=== PATIENT | male | born 2000 | race Caucasian/White ===

== ENCOUNTER 2018-06-12 19:57 | Emergency (ER) | payer SELFPAY ==
[~2018-06-12] VITALS: Ht 170.2 cm; Wt 122.5 kg
[2018-06-12 20:00] VITALS: BP 128/68
--- NOTE | 2018-06-12 20:08 | ED.ADGEN ---
Adult General Chief Complaint Chief Complaint ".. I woke up with this thing on my finger... ".." My finger is infected..." HPI HPI Patient is a 18 year old male who presents with above hx and complaints paronychia of third finger right hand. Patient does chews his finger nails. Patient had previously attempted drainage of small abscess at the edge of fingernail. Patient is a known diabetic. Patient does not remember his last tetanus. No history of travel. No history of ill contacts. She neurovascular intact. Review of Systems Review of Systems Constitutional: Denies fever or chills [] Eyes: Denies change in visual acuity, redness, or eye pain [] HENT: Denies nasal congestion or sore throat [] Respiratory: Denies cough or shortness of breath [] Cardiovascular: No additional information not addressed in HPI [] GI: Denies abdominal pain, nausea, vomiting, bloody stools or diarrhea [] : Denies dysuria or hematuria [] Musculoskeletal: Denies back pain or joint pain [] Integument: Complaints of paronychia right third finger Neurologic: Denies headache, focal weakness or sensory changes [] Endocrine: Denies polyuria or polydipsia [] All other systems were reviewed and found to be within normal limits, except as documented in this note. Family History Family History Diabetes Current Medications Current Medications Current Medications Medications (Trade) Dose Ordered Sig/Darwin Start Time Stop Time Status Last Admin Dose Admin Diphtheria/ Tetanus/Acell Pertussis (Boostrix) 0.5 ml ONCE ONCE 06/12/18 21:30 06/12/18 21:31 DC 06/12/18 21:36 0.5 ML Trimethoprim/ Sulfamethoxazole (Bactrim Ds) 1 tab 1X ONCE 06/12/18 21:30 06/12/18 21:31 DC 06/12/18 21:32 1 TAB Allergies Allergies Allergies Coded Allergies Type Severity Reaction Last Updated Verified No Known Drug Allergies 06/12/18 No Physical Exam Physical Exam Constitutional: Moderately acute distress, non-toxic appearance. [] HENT: Normocephalic, atraumatic, bilateral external ears normal, oropharynx moist, no oral exudates, nose normal. [] Eyes: PERRLA, EOMI, conjunctiva normal, no discharge. [] Neck: Normal range of motion, no tenderness, supple, no stridor. [] Cardiovascular:Heart rate regular rhythm, no murmur [] Lungs & Thorax: Bilateral breath sounds clear to auscultation [] Abdomen: Bowel sounds normal, soft, no tenderness, no masses, no pulsatile masses. [] Skin: Warm, dry, no erythema, no rash. Except Paronychia- as per history of present illness Back: No tenderness, no CVA tenderness. [] Extremities: No tenderness, no cyanosis, no clubbing, ROM intact, no edema. [] Neurologic: Alert and oriented X 3, normal motor function, normal sensory function, no focal deficits noted. [] Psychologic: Affect normal, judgement normal, mood normal. [] EKG EKG [] Radiology/Procedures Radiology/Procedures [] Course & Med Decision Making Course & Med Decision Making Pertinent Labs and Imaging studies reviewed. (See chart for details). Soak finger in warm Epsom salts or salt water 4 times a day. Apply Betadine afterwards. Apply Polysporin. Take Bactrim DS twice a day. Follow-up primary care. Return if any concerns. [] Final Impression Final Impression 1. Paronychia right middle or third finger 2. History of diabetes- leukosis at home today was in the 100- range Dragon Disclaimer Dragon Disclaimer This electronic medical record was generated, in whole or in part, using a voice recognition dictation system. SLUEIMAN DEJESUS MD Jun 12, 2018 20:08
[2018-06-12] MEDS ORDERED: METF10007 PO (20:36)
[2018-06-12] MEDS ORDERED: SULF1TAB24 PO (21:07)
[2018-06-12] MEDS ORDERED: SMZ/TMP 800/160MG TABLET. PO ONE (21:30)
[2018-06-12] MEDS ORDERED: DIPHTH,PERTUSS(ACELL),TET TOX 0.5 ML DISP.SYRIN. VAX IM ONE (21:30)
== END 2018-06-12 21:35 | disposition home or self-care (01) ==
LOC: ER 19:57
DX: L03.011 Cellulitis of right finger (principal); E11.9 Type 2 diabetes mellitus without complications
CPT/HCPCS: 90471; 90715; 99283-25

== ENCOUNTER 2018-08-24 12:50 | Emergency (ER) | payer SELFPAY ==
[~2018-08-24] VITALS: Ht 170.2 cm; Wt 122.5 kg
[~2018-08-24 12:50] MED LIST: METF10007 PO; SULF1TAB24 PO
[2018-08-24 13:27] LABS: BASO # 0.1 x10^3/uL (0.0-0.2); BASO % 1 % (0-3); EOS # 0.1 x10^3/uL (0.0-0.7); EOS % 1 % (0-3); HEMATOCRIT 47.4 % (39.0-53.0); HEMOGLOBIN 16.8 g/dL (13.0-17.5); LYMPH # 2.2 x10^3/uL (1.0-4.8); LYMPH % 30 % (24-48); MEAN CORPUSCULAR HEMOGLOBIN 32 pg (25-35); MEAN CORPUSCULAR HGB CONC 35 g/dL (31-37); MEAN CORPUSCULAR VOLUME 90 fL (79-100); MONO # 0.7 x10^3/uL (0.0-1.1); MONO % 10 % (0-9); NEUT # 4.3 x10^3uL (1.8-7.7); NEUT % 59 % (31-73); PLATELET COUNT 160 x10^3/uL (140-400); RED BLOOD COUNT 5.28 x10^6/uL (4.30-5.70); RED CELL DISTRIBUTION WIDTH 12.9 % (11.5-14.5); WHITE BLOOD COUNT 7.4 x10^3/uL (4.0-11.0)
[2018-08-24] MEDS ORDERED: ONDANSETRON PF 4 MG/2 ML VIAL. IV ONE (13:30)
[2018-08-24] MEDS ORDERED: IV NORMAL SALINE 1,000ML 1,000 ML IV ONE ×2 (13:30→14:15)
[2018-08-24 13:43] LABS: ALBUMIN 3.6 g/dL (3.4-5.0); ALBUMIN/GLOBULIN RATIO 1.3 (1.0-1.7); CALCIUM 8.7 mg/dL (8.5-10.1); CREATININE 0.8 mg/dL (0.7-1.3); GFR 123.2; TOTAL BILIRUBIN 0.7 mg/dL (0.2-1.0); TOTAL PROTEIN 6.4 g/dL (6.4-8.2)
[2018-08-24 13:53] LABS: POTASSIUM 4.4 mmol/L (3.5-5.1)
--- NOTE | 2018-08-24 14:09 | PHYS DOC ---
Past History Past Medical History: Diabetes Past Surgical History: Tonsillectomy, Other Alcohol Use: None Drug Use: None Adult General Chief Complaint Chief Complaint: NAUSEA/VOMITING/DIARRHEA HPI HPI 18-year-old male presents with vomiting and elevated blood sugar. The patient is a diabetic on pills milligrams of metformin twice a day. He checks his blood sugar every morning. This morning it was 126. The patient has had some intermittent vomiting the last couple of days. He has been able to keep down fluids and solids in between these episodes. His blood sugar prior to arrival was over 300. We found the same in the ED. Patient denies fever or chills. He is never had to be seen in the ED are hospitalized for DKA. He denies alcohol or drug use. Review of Systems Review of Systems Constitutional: Denies fever or chills [] Eyes: Denies change in visual acuity, redness, or eye pain [] HENT: Denies nasal congestion or sore throat [] Respiratory: Denies cough or shortness of breath [] Cardiovascular: No additional information not addressed in HPI [] GI: Nausea, vomiting. Denies abdominal pain, bloody stools or diarrhea [] : Denies dysuria or hematuria [] Musculoskeletal: Denies back pain or joint pain [] Integument: Denies rash or skin lesions [] Neurologic: Denies headache, focal weakness or sensory changes [] Endocrine: Denies polyuria or polydipsia [] All other systems were reviewed and found to be within normal limits, except as documented in this note. Current Medications Current Medications Current Medications Medications (Trade) Dose Ordered Sig/Darwin Start Time Stop Time Status Last Admin Dose Admin Ondansetron HCl (Zofran) 4 mg 1X ONCE 08/24/18 13:30 08/24/18 13:31 DC 08/24/18 13:27 4 MG Sodium Chloride 1,000 ml @ 1,000 mls/hr 1X ONCE 08/24/18 13:30 08/24/18 14:29 08/24/18 13:27 1,000 MLS/HR Allergies Allergies Allergies Coded Allergies Type Severity Reaction Last Updated Verified No Known Drug Allergies 06/12/18 No Physical Exam Physical Exam Constitutional: Well developed, obese, well nourished, no acute distress, non- toxic appearance. [] HENT: Normocephalic, atraumatic, bilateral external ears normal, oropharynx moist, no oral exudates, nose normal. [] Eyes: PERRLA, EOMI, conjunctiva normal, no discharge. [] Neck: Normal range of motion, no tenderness, supple, no stridor. [] Cardiovascular:Heart rate regular rhythm, no murmur [] Lungs & Thorax: Bilateral breath sounds clear to auscultation [] Abdomen: Bowel sounds normal, soft, no tenderness, no masses, no pulsatile masses. [] Skin: Warm, dry, no erythema, no rash. [] Back: No tenderness, no CVA tenderness. [] Extremities: No tenderness, no cyanosis, no clubbing, ROM intact, no edema. [] Neurologic: Alert and oriented X 3, normal motor function, normal sensory function, no focal deficits noted. [] Psychologic: Affect normal, judgement normal, mood normal. [] Current Patient Data Lab Results Laboratory Tests Test 08/24/18 13:08 White Blood Count 7.4 x10^3/uL (4.0-11.0) Red Blood Count 5.28 x10^6/uL (4.30-5.70) Hemoglobin 16.8 g/dL (13.0-17.5) Hematocrit 47.4 % (39.0-53.0) Mean Corpuscular Volume 90 fL (79-100) Mean Corpuscular Hemoglobin 32 pg (25-35) Mean Corpuscular Hemoglobin Concent 35 g/dL (31-37) Red Cell Distribution Width 12.9 % (11.5-14.5) Platelet Count 160 x10^3/uL (140-400) Neutrophils (%) (Auto) 59 % (31-73) Lymphocytes (%) (Auto) 30 % (24-48) Monocytes (%) (Auto) 10 % (0-9) H Eosinophils (%) (Auto) 1 % (0-3) Basophils (%) (Auto) 1 % (0-3) Neutrophils # (Auto) 4.3 x10^3uL (1.8-7.7) Lymphocytes # (Auto) 2.2 x10^3/uL (1.0-4.8) Monocytes # (Auto) 0.7 x10^3/uL (0.0-1.1) Eosinophils # (Auto) 0.1 x10^3/uL (0.0-0.7) Basophils # (Auto) 0.1 x10^3/uL (0.0-0.2) Sodium Level 137 mmol/L (136-145) Potassium Level 4.4 mmol/L (3.5-5.1) Chloride Level 102 mmol/L (98-107) Carbon Dioxide Level 27 mmol/L (21-32) Anion Gap 8 (6-14) Blood Urea Nitrogen 12 mg/dL (8-26) Creatinine 0.8 mg/dL (0.7-1.3) Estimated GFR (Cockcroft-Gault) 123.2 BUN/Creatinine Ratio 15 (6-20) Glucose Level 322 mg/dL (70-99) H Calcium Level 8.7 mg/dL (8.5-10.1) Total Bilirubin 0.7 mg/dL (0.2-1.0) Aspartate Amino Transferase (AST) Pending Alanine Aminotransferase (ALT) Pending Alkaline Phosphatase 74 U/L (46-116) Total Protein 6.4 g/dL (6.4-8.2) Albumin 3.6 g/dL (3.4-5.0) Albumin/Globulin Ratio 1.3 (1.0-1.7) Acetone Level Neg (NEG) EKG EKG [] Radiology/Procedures Radiology/Procedures [] Course & Med Decision Making Course & Med Decision Making Pertinent Labs and Imaging studies reviewed. (See chart for details) The patient's initial blood sugar was 322. After 2 L of fluid the patient's blood sugar was 247. The rest of his labs and urinalysis are unremarkable. His acetone is negative. Given the patient's poor good control of his diabetes, I'm unsure why it is elevated today other than because of his viral illness. I believe will continue to improve on its own. I will give the patient Zofran to help manage his vomiting. [] Dragon Disclaimer Dragon Disclaimer This electronic medical record was generated, in whole or in part, using a voice recognition dictation system. 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
[2018-08-24 15:14] LABS: BILIRUBIN,URINE NEG (NEG); CLARITY,URINE CLEAR; COLOR,URINE STRAW; GLUCOSE,URINE 500 mg/dL (NEG)
[2018-08-24 15:15] VITALS: BP 146/86
[2018-08-24 15:15] LABS: BACTERIA,URINE 0 /HPF (0-FEW); NITRITE,URINE NEG (NEG); RBC,URINE 0 /HPF (0-2); SQUAMOUS EPITHELIAL CELL,UR OCC /LPF; UROBILINOGEN,URINE 0.2 mg/dL (0.2 mg/dL); WBC,URINE 0 /HPF (0-4)
[2018-08-24] MEDS ORDERED: ONDA4TAB12 PO (15:20)
== END 2018-08-24 15:33 | disposition home or self-care (01) ==
LOC: ER 12:50
DX: E11.65 Type 2 diabetes mellitus with hyperglycemia (principal); E86.0 Dehydration
CPT/HCPCS: 36415; 80053; 81001; 82010; 82947; 85025; 96361; 96374; 99283; J2405; J7030

== ENCOUNTER 2019-01-22 00:03 | Emergency (ER) | payer SELFPAY ==
[~2019-01-22] VITALS: Ht 170.2 cm; Wt 117.9 kg
[~2019-01-22 00:03] MED LIST changes: +ONDA4TAB12 PO
[2019-01-22] MEDS ORDERED: SULF1TAB24 PO (00:35)
[2019-01-22] MEDS ORDERED: MUPI22OI2 TP (00:35)
--- NOTE | 2019-01-22 00:36 | PHYS DOC ---
Past History Past Medical History: Diabetes Past Surgical History: Tonsillectomy, Other Alcohol Use: None Drug Use: None Adult General HPI HPI Patient is a 20-year-old male with a history of type 2 diabetes, who takes metformin, who states his last blood glucose was 120 this morning, who presents to the emergency department for evaluation. He states that over the past week he has had some pain and soreness in his right upper gluteal region, at a site where he has had "cysts" come and go several times in the past. He has not had any fevers or chills, nausea, or vomiting. Sitting and palpation of the area are painful. There are no alleviating factors to his symptoms. He states he has been evaluated at medical facilities over the past couple of months several times for this, but it usually will go away. Review of Systems Review of Systems Constitutional: Denies fever or chills [] Eyes: Denies change in visual acuity, redness, or eye pain [] GI: Denies abdominal pain, nausea, vomiting, bloody stools or diarrhea [] : Denies dysuria or hematuria [] Allergies Allergies Allergies Coded Allergies Type Severity Reaction Last Updated Verified No Known Drug Allergies 06/12/18 No Physical Exam Physical Exam PHYSICAL EXAM: CONSTITUTIONAL: Well developed, well nourished HEAD: normocephalic, atraumatic EENT: PERRL, EOMI. Conjunctivae normal color, sclerae non-icteric; moist mucous membranes. NECK: Supple, non-tender; no meningismus. LUNGS: Lungs CTA, breathing even and unlabored. Normal air movement. HEART: Regular rate and rhythm, no murmur CHEST: No deformity; non-tender ABDOMEN: The abdomen is soft, and non-tender, no masses or bruits. EXTREM: Normal ROM; no deformity, no calf tenderness. Normal pulses palpable in all extremities. There is no pedal edema. SKIN: At the top of the gluteal cleft, at the inferior aspect of the sacrum, there is a quarter dollar sized circular area, of erythema with no warmth, no fluctuance, but tenderness and some fullness. This area is consistent with an infected pilonidal cyst. No other rash; no diaphoresis NEURO: Alert; normal speech and cognition; CN's grossly intact; strength grossly intact without focal deficit. BACK: No CVA TTP. EKG EKG [] Radiology/Procedures Radiology/Procedures [] Course & Med Decision Making Course & Med Decision Making I discussed the diagnosis with the patient, the initial treatment with oral and topical antibiotics, the need for surgery follow-up for definitive management, and return precautions. Dragon Disclaimer Dragon Disclaimer This electronic medical record was generated, in whole or in part, using a voice recognition dictation system. Departure Departure: Impression: Primary Impression: Infected pilonidal cyst Disposition: HOME, SELF-CARE Condition: STABLE Referrals: COCO SANCHEZ MD (PCP) Patient Instructions: Pilonidal Cyst Additional Instructions: Follow-up with general surgery, . Please call tomorrow to schedule appointment. Applying warm compresses to the affected area may help improve your symptoms. If your symptoms worsen, we will begin running fevers, it is important that he return to the emergency department for further evaluation. Scripts Mupirocin (MUPIROCIN) 22 Gm Oint...g. 1 JAMIL TP TID for -, #15 GM Prov: JOSSELIN CAMPOS MD 01/22/19 Sulfamethoxazole/Trimethoprim (BACTRIM DS TABLET) 1 Each Tablet 1 TAB PO BID for -, #14 TAB Prov: JOSSELIN CAMPOS MD 01/22/19 JOSSELIN CAMPOS MD Jan 22, 2019 00:36
[2019-01-22 00:44] VITALS: BP 148/84
== END 2019-01-22 00:59 | disposition home or self-care (01) ==
LOC: ER 00:03
DX: L05.91 Pilonidal cyst without abscess (principal); E11.9 Type 2 diabetes mellitus without complications; Z79.84 Long term (current) use of oral hypoglycemic drugs
CPT/HCPCS: 99283